=== PATIENT | female | born 1940 | race Caucasian/White ===

== ENCOUNTER 2016-12-29 05:34 | Day surgery (SDC) | payer MEDICARE, OTHER ==
[2016-12-29] VITALS (10 sets, daily range): BP systolic 82–132; BP diastolic 47–69; PULSE 49–69; RESP 11–25; O2SAT 94–99
[~2016-12-29] VITALS: Ht 170.2 cm; Wt 71.0 kg
[~2016-12-29 05:34] MED LIST: CHOL40003 PO; CYAN500 PO; LEVO50TA6 PO; Lactated Ringer's 1,000 ML IV ONE; OMEG-38 PO
[2016-12-29] MEDS ORDERED: fentaNYL-PF 50 mCg/mL 2 mL Inj ONE (05:35)
[2016-12-29] MEDS ORDERED: CeFAZolin 2 Gm/50 mL D5W Duplex Bag IV ONE (05:53)
[2016-12-29] MEDS: Acetaminophen IV 1,000 MG in IV Premix 1 EACH IV SCH ×4 (06:26→18:18)
[2016-12-29] MEDS: CeFAZolin Inj 2 GM in IV Premix 1 EACH IV SCH ×2 (06:26→07:26)
[2016-12-29] MEDS ORDERED: Bupivacaine Liposome 1.3% 20 mL Inj INFILTRATE ONE ×2 (07:00→08:12)
[2016-12-29] MEDS ORDERED: Belladonna Alk-Opium 60 mg Rectal Suppository RECTAL ONE ×2 (07:58→08:12)
--- NOTE | 2016-12-29 08:08 | PCM.HPANE ---
Patient Data Surgeon Admitting Provider: Attending Provider:Brenton Encinas MD Primary Care Physician:Aleta Rothman PA-C Other Provider: Reason for Visit Stress Incontinence, Cystocele STRESS INCONTINENCE, CYSTOCELE Ht/WT & BMI Height (Feet): 5 Height (Inches): 7.00 Weight (Kilograms): 71.0 Body Mass Index 24.00 Allergies Coded Allergies: ibuprofen (Verified Allergy, Unknown, stomach pain, 12/23/16) soy (Verified Allergy, Unknown, UNKNOWN, 12/23/16) metformin (Verified Adverse Reaction, Severe, GI UPSET, 12/23/16) Past Anesthesia History Anesthesia History: Denies:: Anesthesia Reactions, Fam Anesthesia Reaction, Fam Malignant Hypertherm, Malignant Hyperthermia Diabetes History Hx Diabetes?: Yes Type of Diabetes: Diet Controlled Glycemic Control: Diet Controlled Current Bedside Blood Glucose: 164 MRSA MRSA: No Medications Home Meds Incl Beta Dona: No Reported Medications Cholecalciferol (Vitamin D3) (Vitamin D3)4,000 Unit Capsule4,000 Unit PO DAILY 12/23/16 Cyanocobalamin (Vitamin B12)500 Mcg [id number] Mcg PO DAILY 12/23/16 Levothyroxine 50 Mcg [id number] Mcg PO DAILY Ref 0 12/23/16 [place]-3/Dha/Epa/Fish Oil (Fish Oil 1,000 mg Softgel)1 Each Capsule1 Each PO DAILY 12/23/16 Discontinued Reported Medications MULTIVITAMIN-Expunged Drug, Do Not Renew! (MULTI VITAMIN -Expunged Drug, Do Not Renew!)1 Each Tablet1 Each PO DAILY 01/05/13 Cyanocobalamin-Expunged Drug, Do Not Renew! (Vitamin Z-91-Zcsrpbco Drug, Do Not Renew!)500 Mcg Tablet1 Tab SL 12/31/12 Fish Oil/Dha/Epa-Expunged Drug, Do Not Renew! (Fish Oil 1,200 Mg-Expunged Drug, Do Not Renew)1 Each Capsule1 Each PO DAILY 12/31/12 Levothyroxine-Expunged Drug, Do Not Renew! (Synthroid-Expunged Drug, Do Not Renew!)25 Mcg [id number] Mcg PO DAILY 0.025 MG = 25 MCG 12/31/12 CHOLECALCIFEROL-Expunged Drug, Do Not Renew! (VITAMIN D3-Expunged Drug, Do Not Renew!)4,000 Unit Capsule4,000 Unit PO NO SIG 12/31/12 History History of ENT Problems?: No HEENT History: Denies:: Abnormal Airway Cataracts Difficult Intubation Dysphagia Glaucoma Hearing Problem Sinus Problem TMJ Denture Type: None Teeth Condition: Within Normal Limits Hx of Heart Problems?: No Cardiovascular History: Denies:: Hypertension Hx of Respiratory Problem?: No Respiratory History: Denies:: Oxygen Administration Use of C-PAP Machine Hx Neurologic Problems?: No Hx of GI Problems?: No Hx of Problems?: Yes Genitourinary History: Denies:: HX of Hemodialysis Kidney Stones HX of Peritoneal Dialysis: No Female Hx: Denies:: Currently (tubal) Endometriosis Pelvic Inflammatory Problems with Breasts? Skin History: Denies:: History Skin Disorders? Pressure Ulcers Hx Musculoskeletal Problems?: Yes Musculoskeletal History: Denies:: Back Injury (hx of lumbar back pain) Hx of Psycho/Social Problems?: No Hx Surgeries?: Yes (BTL, cystocele) Hx Any Other Health Problems?: Yes Other History: Positive for:: Thyroid Disease Denies:: Cancer Endocrine Disease Hospitalization History Blood Transfusions: Denies:: Blood Transfusions Hx Diabetes: YesBedside Blood Glucose: 164 Hx Alcohol Use: NoHx Substance Use: NoHave You Smoked inLast 12 mo: No Stop/Bang S-Snoring: Do You Snore Loudly: No T-Tired: feel tired, fatigued: No O-Obsered: Observed not breath: No P-Blood Pressure: treated: No B- Body Mass Index > 35 kg/m2: No A- Age over 50: Yes N- Neck Large Circumference: No G- Gender Male: No DONNA Total Score: 1 Risk Assessment Category Category 1A: Patient has history of documented sleep apnea, and HAS NOT received any narcotic, sedative or anesthesia administration during this stay. Category 1B: Patient has history of documented sleep apnea, and HAS received any narcotic , sedative or anesthesia administration during this stay Category 2: Patient has SUSPECTED Obstructive Sleep Apnea, and HAS received any narcotic , sedative or anesthesia administration during this stay. Category 3: Patient has SUSPECTED Obstructive Sleep Apnea and HAS NOT received narcotic, sedative or anesthesia administration during this stay. Category 4: Outpatient in Procedural Areas with known sleep apnea or who screen positive for High Risk via the STOP/BANG questionnaire. Exam Exam Vital Signs Vital Signs Date Time Temp Pulse Resp B/P Pulse Ox O2 Delivery O2 Flow Rate FiO2 12/29/16 06:09 36.0 67 18 132/69 97 Room Air General Appearance: Alert, Oriented X3, Cooperative, No Acute Distress HEENT/AIRWAY: MP 2 Lungs: Clear to Auscultation, Normal Air Movement Heart: Exam Unremarkable, Regular Rate/Rhythm, No Murmurs/Rubs/Gallops Meds/Labs/Diagnostics Admission Meds Current Medications Acetaminophen 1000 mg/Premix 100 ml @ 400 mls/hr PREOP IV Last administered on 12/29/16 06:33; Start 12/29/16 at 06:26; Stop 12/29/16 at 06:40; Status DC Lactated Ringer's (Lr) 1,000 ml @ 120 mls/hr Q8H20M ONCE IV Last administered on 12/29/16 05:41; Start 12/29/16 at 05:00; Stop 12/29/16 at 13:19 Bedside Blood Glucose: 164 Plan Impression Patient chart reviewed, patient interviewed and anesthestic plan with risks, benefits, and alternatives discussed, and informed consent obtained. NPO per Anesth. Guidelines: Yes ASA Physical Status: ASA2 Mod Systemic Disease Anesthetic Plan: GA Bene/Risks/Altern/Consents: Yes HP Complete Prior to Induction: Yes Jb Edwards MD Dec 29, 2016 07:16
[2016-12-29] MEDS ORDERED: Gentamicin 40 mg/mL 2 mL Inj IRRIGATION ONE (08:12)
[2016-12-29] MEDS ORDERED: Bupivacaine-MPF 0.5% 30 mL Inj INFILTRATE ONE (08:12)
[2016-12-29] MEDS ORDERED: Lactated Ringer's 500 ML IV PRN (08:16)
[2016-12-29] MEDS ORDERED: Lactated Ringer's 1,000 ML IV SCH (08:16)
[2016-12-29] MEDS ORDERED: Labetalol 5 mg/mL 20 mL Inj IV PRN (08:20)
[2016-12-29] MEDS ORDERED: Phenylephrine 10,000 mCg/mL Inj IVPUSH PRN (08:20)
[2016-12-29] MEDS ORDERED: Ondansetron 2 mg/mL 2 mL Inj IVPUSH PRN (08:20)
[2016-12-29] MEDS ORDERED: MetoCLOpramide 5 mg/mL 2 mL Inj IVPUSH PRN (08:20)
[2016-12-29] MEDS ORDERED: EPHEDrine Sulfate 50 mg/mL Inj IVPUSH PRN (08:20)
[2016-12-29] MEDS ORDERED: Dexamethasone 4 mg/mL Inj IVPUSH PRN (08:20)
[2016-12-29] MEDS ORDERED: HYDROmorphone 1 mg/mL Inj IVPUSH PRN ×2 (08:20→10:45)
[2016-12-29] MEDS ORDERED: fentaNYL-PF 50 mCg/mL 2 mL Inj IVPUSH PRN (08:20)
[2016-12-29] MEDS ORDERED: Polyethylene Glycol (PEG) 17 Gm Powder PO PRN (10:45)
[2016-12-29] MEDS: Lactated Ringer's 1,000 ML IV SCH ×4 (11:39→20:39)
--- NOTE | 2016-12-29 11:53 | PCM.ANEP1 ---
Post Anesthesia PACU Phase 1 Assessment Vital Signs Vital Signs Date Time Temp Pulse Resp B/P Pulse Ox O2 Delivery O2 Flow Rate FiO2 12/29/16 11:30 59 13 123/65 96 Room Air 12/29/16 11:15 61 12 119/63 95 Room Air 12/29/16 11:05 36.3 51 14 92/53 94 Room Air 12/29/16 11:00 51 11 82/47 96 Room Air 12/29/16 10:55 49 12 82/48 95 Room Air 12/29/16 10:51 36.2 102/58 12/29/16 06:09 36.0 67 18 132/69 97 Room Air Anesthetic Administered: GA Level of Alertness: Awake, talking RODRIGES's with Equal Strength: Yes Pain: No Nausea or Vomiting: No CV Function & Hydration Stable: Yes Airway Device: Oxygen Delivery: Room Air Lungs: Clear to Auscultation, Normal Air Movement Dermatome Level: Full Sensation PACU Phase 2 Assessment Complications: No Follow up Care: N/A Patient Instructions Provided: Yes Jb Edwards MD Dec 29, 2016 11:53
[2016-12-29 12:19] LABS: APPEARANCE,URINE HAZY (CLEAR,HAZY); COLOR,URINE YELLOW (YELLOW); OCCULT BLOOD,URINE NEGATIVE (NEGATIVE); UROBILINOGEN,URINE NORMAL (NORMAL)
[2016-12-30] MEDS: Acetaminophen IV 1,000 MG in IV Premix 1 EACH IV SCH ×3 (00:41→11:59)
[2016-12-30 01:19] VITALS: BP 100/54; PULSE 70; RESP 16; O2SAT 96
[2016-12-30 04:54] VITALS: BP 123/57; PULSE 63; RESP 18; O2SAT 95
[2016-12-30] MEDS: Lactated Ringer's 1,000 ML IV SCH (04:59)
[2016-12-30 12:39] VITALS: BP 140/65; PULSE 54; RESP 18; O2SAT 96
--- NOTE | 2016-12-30 20:13 | DIS ---
[address] [address] DISCHARGE SUMMARY PATIENT: KINGSLEY PASCUAL : 1940 MR#: [id number] ADMIT: 12/29/2016 JOB ID: [id number] DIS: 12/30/2016 DATE OF ADMISSION: 12/29/2016 DATE OF DISCHARGE: 12/30/2016 ADMITTING DIAGNOSES: 1. Stress urinary incontinence. 2. Recurrent cystocele. 3. Recurrent rectocele. DISCHARGE DIAGNOSES: 1. Stress urinary incontinence. 2. Recurrent cystocele. 3. Recurrent rectocele. PROCEDURE PERFORMED IN HOSPITAL: 1. Transobturator suburethral sling 2. Repair, recurrent cystocele. 3. Repair, recurrent rectocele. HOSPITAL SUMMARY: The patient was admitted the morning of December 29, 2016, and underwent uncomplicated transobturator suburethral sling and redo anterior and posterior repair with graft under general anesthesia. Postop course was largely unremarkable. Following surgery she little to no postoperative pain requiring analgesics. She tolerated a general diet and return of bowel function. She has evidence by bladder. Stock catheter was removed. At 7:00 a.m vaginal pack was removed at 5:00 a.m. On December 30, 2016, he subsequently failed the vocal competent. Stock catheter placed. She was provided prescriptions for oxycodone, advised to take a daily stool softener such as MiraLAX. A postoperative outpatient voiding trial will be scheduled and supervised in the next 3-5 days.
== END 2016-12-30 15:26 | disposition home or self-care (01) ==
LOC: SAS 05:34 → OSC 12:34 → UNDOADMIN 12:34 → OSC 12:34 → SAS 12-30 15:26
PROVIDERS: ATTEND Specialist
DX: N39.3 Stress incontinence (female) (male) (principal); N81.10 Cystocele, unspecified; N81.6 Rectocele; R39.9 Unspecified symptoms and signs involving the genitourinary system; G89.18 Other acute postprocedural pain; E78.00 Pure hypercholesterolemia, unspecified; E11.9 Type 2 diabetes mellitus without complications; Z79.890 Hormone replacement therapy